=== PATIENT | female | born 1985 | race Caucasian/White ===

== ENCOUNTER 2021-07-10 09:10 | Inpatient (IN) | payer OTHER ==
[2021-07-10 11:25] LABS: EPI CELLS >36 /uL (0-25.1); HYALINE CASTS 2 /uL (0-3.1); URINE APPEARANCE CLEAR; URINE BACTERIA 2466 /uL (0-1359); URINE BILIRUBIN NEGATIVE (NEGATIVE); URINE COLOR DK YELLOW; URINE GLUCOSE (UA) NEGATIVE (NEGATIVE); URINE KETONE TRACE (NEGATIVE); URINE LEUK ESTERASE TRACE (NEGATIVE); URINE NITRITE NEGATIVE (NEGATIVE); URINE PROTEIN NEGATIVE (NEGATIVE); URINE RBC 17 /uL (0-23.9); URINE UROBILINOGEN 0.2 mg/dL (0.2-1.0); URINE WBC 56 /uL (0-25.8)
[2021-07-10 11:36] LABS: RETICULOCYTES 2.56 % (0.5-1.5)
[2021-07-10 12:10] LABS: URIC ACID 4.2 mg/dL (2.6-7.2)
[2021-07-10] MEDS ORDERED: BETAMET ACET/BETAMET NA PH 30 MG/5 ML VIAL IM ONE (12:30)
[2021-07-10] MEDS ORDERED: NIFEdipine E.R. 30 MG TABLET ONE (12:49)
[2021-07-10] MEDS ORDERED: BETAMET ACET/BETAMET NA PH 30 MG/5 ML VIAL ONE (12:49)
[2021-07-10] MEDS: NIFEdipine E.R. 30 MG TABLET PO SCH (13:15)
[2021-07-10 14:08] LABS: BASO % 0.3 % (0-2.0); EOS % 0.2 % (0-4.5); HEMATOCRIT 37.5 % (32.4-45.2); HEMOGLOBIN 13.1 GM/dL (10.7-15.3); LYMPH % 21.9 % (8-40); MCH 31.8 pg (25.7-33.7); MCHC 34.8 g/dl (32.0-36.0); MEAN CELL VOLUME 91.2 fl (80-96); MEAN PLT VOLUME 8.6 fl (7.5-11.1); MONO % 7.7 % (3.8-10.2); NEUT % 69.9 % (42.8-82.8); PLATELET COUNT 223 10^3/uL (134-434); RBC 4.11 M/mm3 (3.60-5.2); RDW 14.7 % (11.6-15.6); WHITE BLOOD COUNT 8.5 K/mm3 (4.0-10.0)
[2021-07-10 14:09] LABS: INR 0.99 (0.83-1.09); PROTHROMBIN TIME (PATIENT) 11.4 SEC (9.7-13.0)
[2021-07-10 14:11] LABS: ACTIVATED PTT 27.7 SECONDS (25.2-36.5)
[2021-07-10 14:22] LABS: CALCIUM 9.3 mg/dL (8.5-10.1)
[2021-07-10 14:23] LABS: BLOOD UREA NITROGEN 6.8 mg/dL (7-18)
[2021-07-10 14:26] LABS: CREATININE 0.7 mg/dL (0.55-1.3)
[2021-07-10 14:51] VITALS: BMI 51.6
[2021-07-10] MEDS ORDERED: LACTATED RINGERS SOLUTION 1,000 ML IV SCH (17:30)
[2021-07-10] MEDS: glyBURIDE 2.5 MG TABLET PO SCH (22:00)
[2021-07-11] MEDS: NIFEdipine E.R. 30 MG TABLET PO SCH (09:31)
[2021-07-11] MEDS ORDERED: BETAMET ACET/BETAMET NA PH 30 MG/5 ML VIAL IM ONE (13:15)
[2021-07-11] MEDS: ACETAMINOPHEN 325 MG TABLET (FP) PO PRN (18:27)
[2021-07-11] MEDS: glyBURIDE 2.5 MG TABLET PO SCH (22:09)
[2021-07-11] MEDS: HEPARIN NA (PORCINE) 5,000 UNITS/ML 1ML VIAL SQ SCH (22:09)
[2021-07-12] MEDS: ACETAMINOPHEN 325 MG TABLET (FP) PO PRN (00:16)
[2021-07-12] MEDS: NIFEdipine E.R. 30 MG TABLET PO SCH (09:44)
[2021-07-12] MEDS: HEPARIN NA (PORCINE) 5,000 UNITS/ML 1ML VIAL SQ SCH (09:44)
[2021-07-12] MEDS ORDERED: PRENATAL VITAMINS W/ FOLIC ACID TABLET (FP) PO SCH (10:00)
[2021-07-12 12:18] LABS: BASO % 0.2 % (0-2.0); HEMATOCRIT 35.4 % (32.4-45.2); HEMOGLOBIN 12.5 GM/dL (10.7-15.3); LYMPH % 20.7 % (8-40); MCHC 35.4 g/dl (32.0-36.0); MEAN CELL VOLUME 90.5 fl (80-96); MEAN PLT VOLUME 8.4 fl (7.5-11.1); MONO % 6.2 % (3.8-10.2); NEUT % 72.9 % (42.8-82.8); PLATELET COUNT 238 10^3/uL (134-434); RBC 3.91 M/mm3 (3.60-5.2); RDW 14.6 % (11.6-15.6)
[2021-07-12 12:32] LABS: ALBUMIN 2.4 g/dl (3.4-5.0); CALCIUM 8.4 mg/dL (8.5-10.1)
[2021-07-12 12:33] LABS: BLOOD UREA NITROGEN 11.3 mg/dL (7-18)
[2021-07-12 12:36] LABS: CREATININE 0.7 mg/dL (0.55-1.3)
[2021-07-12 12:37] LABS: BILIRUBIN,TOTAL 0.2 mg/dL (0.2-1); TOT PROT 6.3 g/dl (6.4-8.2)
[2021-07-12 14:25] VITALS: BP 145/87; PULSE 67; TEMP 97.7
[2021-07-14 21:09] LABS: ALBUMIN % 38.2 % (.); ALPHA-1 FOR UPE 6.8 % (.); TOTAL PROTEIN, URINE 14.8 mg/dL (Not Estab.)
== END 2021-07-12 17:15 | disposition home or self-care (01) | DRG 566 ==
LOC: JDEL 09:10 → JLDR 12:30 → J3W 21:12
PROVIDERS: ADMIT Obstetrics & Gynecology; ATTEND Obstetrics & Gynecology
DX: O16.3 Unspecified maternal hypertension, third trimester (principal); O24.913 Unspecified diabetes mellitus in pregnancy, third trimester; O99.213 Obesity complicating pregnancy, third trimester; Z3A.33 33 weeks gestation of pregnancy
CPT/HCPCS: 36415; 80048; 80053; 81003; 82570; 82962; 82977; 83010; 84156; 84166; 84450; 84460; 84550; 85025; 85032; 85045; 85610; 85730; 86780; 86850; 86900; 86901; 96372; C9803; J1644; U0003; U0005

== ENCOUNTER 2021-08-01 08:00 | Inpatient (IN) | payer OTHER ==
[2021-08-01] MEDS ORDERED: PENICILLIN G POTASSIUM 20,000,000 (20Mm) UNITS VIAL IVPB ONE (10:21)
[2021-08-01] MEDS ORDERED: MISOPROSTOL 100 MCG TABLET PV ONE (10:30)
[2021-08-01] MEDS ORDERED: DEXTROSE 5%-LACTATED RINGERS 1,000 ML IV SCH (10:30)
[2021-08-01] MEDS ORDERED: NIFEdipine E.R. 30 MG TABLET ONE (10:45)
[2021-08-01] MEDS: NIFEdipine E.R. 30 MG TABLET PO SCH (10:51)
[2021-08-01 11:00] LABS: BASO % 0.2 % (0-2.0); EOS % 0.3 % (0-4.5); HEMATOCRIT 39.1 % (32.4-45.2); HEMOGLOBIN 13.3 GM/dL (10.7-15.3); LYMPH % 22.3 % (8-40); MCH 31.2 pg (25.7-33.7); MCHC 34.1 g/dl (32.0-36.0); MEAN CELL VOLUME 91.5 fl (80-96); MEAN PLT VOLUME 8.4 fl (7.5-11.1); MONO % 6.8 % (3.8-10.2); NEUT % 70.4 % (42.8-82.8); PLATELET COUNT 218 10^3/uL (134-434); RBC 4.27 M/mm3 (3.60-5.2); RDW 14.6 % (11.6-15.6); WHITE BLOOD COUNT 8.2 K/mm3 (4.0-10.0)
[2021-08-01 11:08] LABS: INR 0.98 (0.83-1.09); PROTHROMBIN TIME (PATIENT) 11.3 SEC (9.7-13.0)
[2021-08-01 11:10] LABS: ACTIVATED PTT 27.3 SECONDS (25.2-36.5)
[2021-08-01 11:25] LABS: CALCIUM 8.7 mg/dL (8.5-10.1)
[2021-08-01 11:26] LABS: BLOOD UREA NITROGEN 9.2 mg/dL (7-18)
[2021-08-01 11:29] LABS: CREATININE 0.7 mg/dL (0.55-1.3)
[2021-08-01 11:54] VITALS: BMI 51.6
[2021-08-01 11:57] LABS: EPI CELLS 21 /uL (0-25.1); HYALINE CASTS 1 /uL (0-3.1); URINE APPEARANCE CLEAR; URINE BACTERIA 135 /uL (0-1359); URINE BILIRUBIN NEGATIVE (NEGATIVE); URINE COLOR YELLOW; URINE GLUCOSE (UA) NEGATIVE (NEGATIVE); URINE KETONE NEGATIVE (NEGATIVE); URINE LEUK ESTERASE TRACE (NEGATIVE); URINE NITRITE NEGATIVE (NEGATIVE); URINE PROTEIN NEGATIVE (NEGATIVE); URINE RBC 7 /uL (0-23.9); URINE UROBILINOGEN 0.2 mg/dL (0.2-1.0); URINE WBC 6 /uL (0-25.8)
[2021-08-01] MEDS ORDERED: PENICILLIN G POTASSIUM 5,000,000 UNIT in DEXTROSE 5%-WATER - 250 ML IVPB ONE (12:00)
[2021-08-01] MEDS ORDERED: morphine SULFATE/PF 1 MG/2 ML (2cc Syringe - QUVA) ONE (15:51)
[2021-08-01] MEDS ORDERED: ceFAZolin SODIUM 1 GM VIAL ONE ×3 (15:51)
[2021-08-01] MEDS ORDERED: PENICILLIN G POTASSIUM 2,500,000 UNIT in DEXTROSE 5%-WATER - 250 ML IVPB SCH (16:00)
[2021-08-01 17:06] LABS: CORD BASE EXCESS -3.7 mmol/L (0-2); CORD HCO3 23.8 mmHg (20-29); CORD PCO2 51.6 mmHg (30-78); CORD pH 7.281 (7.14-7.44)
[2021-08-01 17:07] LABS: CORD HCO3 21.2 mmHg (20-29); CORD PCO2 54.8 mmHg (30-78); CORD pH 7.205 (7.14-7.44)
[2021-08-01] MEDS ORDERED: ONDANSETRON 4 MG/2 ML VIAL IVPUSH PRN (18:30)
[2021-08-01] MEDS ORDERED: ACETAMINOPHEN 325 MG TABLET (FP) PO PRN (18:34)
[2021-08-01] MEDS ORDERED: IBUPROFEN 600 MG TABLET (FP) PO PRN (18:34)
[2021-08-01] MEDS: OXYTOCIN 20 UNITS in 0.9% NS 20 UNIT/1,000 ML INFUS.BAG IV SCH (19:30)
[2021-08-01] MEDS ORDERED: OXYTOCIN 20 UNITS in 0.9% NS 20 UNIT/1,000 ML INFUS.BAG IV ONE (19:35)
[2021-08-02] MEDS ORDERED: oxyCODONE HCL 5 MG TABLET ONE (02:47)
[2021-08-02] MEDS: SIMETHICONE 80 MG TAB.CHEW (FP) PO PRN (02:49)
[2021-08-02] MEDS: OXYTOCIN 20 UNITS in 0.9% NS 20 UNIT/1,000 ML INFUS.BAG IV SCH (04:16)
[2021-08-02] MEDS ORDERED: oxyCODONE HCL 5 MG TABLET PO PRN (06:34)
[2021-08-02 09:31] LABS: BASO % 0.1 % (0-2.0); HEMOGLOBIN 10.2 GM/dL (10.7-15.3); LYMPH % 13.7 % (8-40); MCH 31.3 pg (25.7-33.7); MEAN CELL VOLUME 92.1 fl (80-96); MEAN PLT VOLUME 8.4 fl (7.5-11.1); MONO % 4.6 % (3.8-10.2); NEUT % 81.6 % (42.8-82.8); PLATELET COUNT 180 10^3/uL (134-434); RBC 3.26 M/mm3 (3.60-5.2); RDW 14.9 % (11.6-15.6); WHITE BLOOD COUNT 13.3 K/mm3 (4.0-10.0)
[2021-08-02] MEDS: NIFEdipine E.R. 30 MG TABLET PO SCH (09:39)
[2021-08-02 12:02] LABS: POC NITRAZINE POS
[2021-08-02] MEDS ORDERED: BISACODYL 10 MG SUPP.RECT RC PRN (18:34)
[2021-08-03] MEDS: NIFEdipine E.R. 30 MG TABLET PO SCH (11:29)
[2021-08-03] MEDS: CEPHALEXIN MONOHYDRATE 500 MG CAPSULE (UD) PO SCH ×2 (14:45→22:00)
[2021-08-03] MEDS: SIMETHICONE 80 MG TAB.CHEW (FP) PO PRN (22:00)
[2021-08-04 07:45] LABS: BASO % 0.2 % (0-2.0); EOS % 0.5 % (0-4.5); HEMATOCRIT 25.5 % (32.4-45.2); HEMOGLOBIN 9.1 GM/dL (10.7-15.3); MCH 32.4 pg (25.7-33.7); MCHC 35.6 g/dl (32.0-36.0); MEAN PLT VOLUME 7.7 fl (7.5-11.1); MONO % 5.1 % (3.8-10.2); NEUT % 72.2 % (42.8-82.8); PLATELET COUNT 172 10^3/uL (134-434); RDW 14.6 % (11.6-15.6); WHITE BLOOD COUNT 10.9 K/mm3 (4.0-10.0)
[2021-08-04] MEDS: NIFEdipine E.R. 30 MG TABLET PO SCH (09:39)
[2021-08-04] MEDS: CEPHALEXIN MONOHYDRATE 500 MG CAPSULE (UD) PO SCH ×2 (10:46→21:50)
[2021-08-04] MEDS ORDERED: ceFAZolin 2 GRAM PREMIX BAG IVPB SCH (17:45)
[2021-08-05] MEDS: CEPHALEXIN MONOHYDRATE 500 MG CAPSULE (UD) PO SCH (10:36)
[2021-08-05] MEDS: NIFEdipine E.R. 30 MG TABLET PO SCH (10:36)
[2021-08-05 10:54] VITALS: BP 128/80; PULSE 91; TEMP 98.4
== END 2021-08-05 16:30 | disposition home or self-care (01) | DRG 540 ==
LOC: JDEL 08:00 → JLDR 09:30 → J3W 19:55
PROVIDERS: ADMIT Obstetrics & Gynecology; ATTEND Obstetrics & Gynecology
PROC: 10D00Z1 Extraction of Products of Conception, Low, Open Approach (ICD-10-PCS; principal; 2021-08-01)
DX: O60.14X0 Preterm labor third trimester with preterm delivery third trimester, not applicable or unspecified (principal); O24.429 Gestational diabetes mellitus in childbirth, unspecified control; O99.214 Obesity complicating childbirth; O13.4 Gestational [pregnancy-induced] hypertension without significant proteinuria, complicating childbirth; O14.94 Unspecified pre-eclampsia, complicating childbirth; O46.8X3 Other antepartum hemorrhage, third trimester; Z3A.36 36 weeks gestation of pregnancy; Z37.0 Single live birth
CPT/HCPCS: 36415; 36600; 59025; 80048; 81003; 82803; 82962; 83986-QW; 85025; 85610; 85730; 86780; 86850; 86900; 86901; 87086; 87186; 88307-TC; C9803-CS; U0003; U0005